=== PATIENT | male | born 1965 | race Caucasian/White ===

== ENCOUNTER 2021-12-07 05:48 | Emergency (ER) | payer OTHER, SELFPAY ==
[2021-12-07 06:30] VITALS: BP 124/72; PULSE 73; RESP 18; TEMP 36.6; O2SAT 96; BMI 34.2
--- NOTE | 2021-12-07 07:29 | ED.GENADULT ---
HPI - General Adult General Chief complaint: Extremity Injury, Lower Stated complaint: R Toe infection Time Seen by Provider: 12/07/21 07:16 Source: patient Mode of arrival: ambulatory Limitations: no limitations History of Present Illness HPI narrative: 56-year-old male came in for evaluation of right great toe infection. Patient noticed redness and tenderness in her right toe for the past 4 days, been worsening over the past 4 days, patient try to arrange appointment with his PCP who arranged for visiting nurse patient was given 1 dose of IV ceftriaxone as reported by the patient yesterday and was instructed to come to the ED for further evaluation, patient declined any fever or chills. Related Data Previous Rx's Medication Instructions Recorded doxycycline hyclate 100 mg tablet 100 mg PO BID #14 tabs 12/07/21 Allergies Allergy/AdvReac Type Severity Reaction Status Date / Time hydrocodone [HYDROCODONE] Allergy Intermediate ITCH Unverified 11/17/19 18:21 Hydrocodone-Acetaminophen Allergy Unknown Uncoded 06/23/12 00:00 Review of Systems Review of Systems: All other systems are reviewed and are negative Constitutional: Reports as per HPI and Reports no additional constitutional complaints Eyes: Reports as per HPI and Reports no additional eye complaints Reports system reviewed and no additional complaints, except as documented Cardiovascular: Reports as per HPI and Reports no additional cardiovascular complaints Respiratory: Reports as per HPI and Reports no additional respiratory complaints Gastrointestinal: Reports as per HPI and Reports no additional gastrointestinal complaints Genitourinary: Reports no additional female genitourinary complaints Musculoskeletal: Reports no additional musculoskeletal complaints Skin/Breast: Reports system reviewed and no additional complaints, except as docu Psychiatric: Reports no additional psychiatric complaints Endocrine: Reports no additional endocrine complaints Hematologic/Lymphatic: Reports no additional hematologic/lymphatic complaints Allergic/Immunologic: Reports no additional allergic/immunologic complaints Reports system reviewed and no additional complaints, except as documented and Reports Abnormal speech present [facility] Social History Social History Advance Directives: No Advance Directives Information Provided: Yes Physical Exam ED Vital Signs: Vital Signs - 24 hr 12/07/21 06:30 Temperature 98 F Pulse Rate 73 Respiratory Rate 18 Blood Pressure 124/72 Pulse Oximetry 96 Oxygen Delivery Method Room Air BMI result Body Mass Index 34.2 Vital signs have been reviewed as appeared to be correct. Blood pressure normal. Heart rate normal. Respiration rate normal. Temperature normal. Oxygen saturation normal. Appearance: Alert. Oriented X3. No acute distress. Head: Normal external exam. Normocephalic. Atraumatic. No [place] signs noted. No raccoon eyes noted Eyes: PERRLA. EOMI. Conjunctiva and sclera normal. Eyelids normal. ENT: TM's Normal. Pharynx normal. Uvula midline. Moist mucous membranes. No trismus noted. No drooling noted. No muffled voice noted. Neck: Normal inspection. Neck supple. FROM. No adenopathy. Thyroid Normal. No meningeal signs. No neck mass noted. CVS: Normal heart rate and rhythm. Heart sound normal. No murmurs noted. Pulses normal throughout. Respiratory: No respiratory distress. Painless inspiration. Breath sounds normal. No wheezes/rales/rhonchi noted. Chest nontender. No accessory muscle usage noted or decreased air movement noted. Abdomen: Soft and nontender. Bowel sounds normal in all 4 quadrants. No distention noted. No organomegaly noted. No visible injury noted. Back: No CVA tenderness. Full range of motion noted. Skin: Skin warm and dry. Normal skin color. Normal skin turgor. No rashes/lesions/lacerations noted. Extremities: Right great toe swelling with redness and hotness , there is a fluctuation at the nail bed and subcuticular area. Neuro: Oriented X 3. Cranial nerve exam: II-XII are grossly intact No motor deficit. No sensory deficit. Reflexes normal. Course Course Course Narrative: Status post subcuticular abscess I&D. Patient was instructed to return in 2 days for wound check, warm water soaking and start on doxycycline. Procedures Abscess I/D Site: foot (Right toe subcuticular area) Side (if applicable): right Local Anesthetic: lidocaine 1% Amount of anesthesia used (mL): 3 Technique: incised with blade (Size 11) Amount of fluid expressed (mL): 3 Sent for culture/gram staining?: No Irrigation: No Packing used?: none Discharge Plan Discharge Clinical Impression: [facility] Patient Disposition: Home, Self-Care Instructions: [facility] (ED) Additional Instructions: Either return to the emergency department or see your primary doctor in 2 days for wound check. Prescriptions: New doxycycline hyclate 100 mg tablet 100 mg PO BID Qty: 14 0RF Referrals: Thomas Romano III, MD [Primary Care Provider] -
[2021-12-07] MEDS: Lidocaine HCl 1 % MPF 5 ML VIAL SUBCUT (08:46)
--- NOTE | 2021-12-07 09:02 | PC.NURSE ---
Per Dr. Castillo override Lidocaine 1%. provider administered.
== END 2021-12-07 09:20 | disposition home or self-care (01) ==
PROVIDERS: Emergency Provider Emergency Medicine; PCP Internal Medicine
DX: L03.032 Cellulitis of left toe (principal)
CPT/HCPCS: 10060; 73660; 99284